=== PATIENT | male | born 1955 | race African-American/Black ===

== ENCOUNTER 2017-06-19 14:59 | Observation (INO) | payer BC, MEDICARE ==
[~2017-06-19] VITALS: Ht 188 cm; Wt 99.8 kg
[2017-06-19] MEDS ORDERED: ONDANSETRON HCL 4MG/2ML VIAL IV STA (16:44)
[2017-06-19] MEDS ORDERED: MORPHINE SULFATE 4 MG/ML CPJ (NOT FOR IM USE) IV STA (16:44)
[2017-06-19 17:32] LABS: BASOPHILS % 0.5 % (0.0-2.0); HEMATOCRIT. 44.7 % (42.0-52.0); HEMOGLOBIN. 15.4 g/dL (14.0-18.0); LYMPHOCYTES % 7.2 % (20.0-50.0); MEAN CORPUSCULAR HEMOGLOBIN 28.8 pg (28.0-32.0); MEAN CORPUSCULAR VOLUME 83.5 fL (80.0-94.0); MONOCYTES % 5.7 % (2.0-8.0); NEUTROPHILS % 86.6 % (40.0-76.0); PLATELET 228 x1000/uL (130-400); RED BLOOD CELL COUNT 5.36 mill/uL (4.7-6.1); RED CELL DISTRIBUTION WIDTH 14.3 % (11.6-14.6)
[2017-06-19 17:40] LABS: CLARITY URINE CLEAR (CLEAR); COLOR URINE YELLOW (YELLOW); GLUCOSE URINE 1+ (NEGATIVE); KETONES URINE NEGATIVE (NEGATIVE); LEUKOCYTE ESTERASE URINE NEGATIVE (NEGATIVE); NITRITE URINE NEGATIVE (NEGATIVE); OCCULT BLOOD URINE 3+ (NEGATIVE); PH URINE 7.5 (4.5-8.0); PROTEIN URINE NEGATIVE (NEGATIVE); SPECIFIC GRAVITY URINE 1.008 (1.005-1.030); UROBILINOGEN URINE 0.2 E.U./dL (0.2-1.0)
[2017-06-19 17:41] LABS: CHLORIDE 100 mEq/L (98-107)
[2017-06-19 17:43] LABS: CARBON DIOXIDE 27 mEq/L (21-32)
[2017-06-19 17:49] LABS: TROPONIN I 0.02 ng/mL (0.00-0.04)
[2017-06-19 17:52] LABS: INR 1.1; PARTIAL THROMBOPLASTIN TIME 29.4 sec (24.0-34.0); PROTHROMBIN TIME 11.4 sec
[2017-06-19] MEDS ORDERED: PIPERACILLIN/TAZ 3.375G PREMIX 50 ML IV ONE (18:30)
[2017-06-19] MEDS ORDERED: SODIUM CHLORIDE 0.9% 1000ML BAG (SEPSIS BOLUS) IV ONE (18:30)
[2017-06-19] MEDS ORDERED: LEVOFLOXACIN 500MG PREMIX 100 ML IV ONE (19:15)
[2017-06-19] MEDS ORDERED: ONDANSETRON HCL 4MG/2ML VIAL IV ONE (20:30)
[2017-06-19] MEDS ORDERED: MORPHINE SULFATE 4 MG/ML CPJ (NOT FOR IM USE) IV ONE (20:30)
[2017-06-19] MEDS ORDERED: HYDRALAZINE 20MG/ML VIAL IV ONE (21:15)
[2017-06-19 23:03] VITALS: BP 170/62
[2017-06-19 23:33] VITALS: BP 170/62
[2017-06-20] MEDS ORDERED: ONDANSETRON HCL 4MG/2ML VIAL IV PRN
[2017-06-20] MEDS ORDERED: ACETAMINOPHEN 325MG TABLET PO PRN
[2017-06-20] MEDS ORDERED: DOCUSATE SODIUM 100MG CAPSULE PO PRN
[2017-06-20] MEDS: TAMSULOSIN HCL 0.4MG SR CAPSULE PO SCH ×2 (01:26→08:53)
[2017-06-20] MEDS: SODIUM CHLORIDE 0.9% 1,000 ML IV SCH ×2 (01:27→12:43)
[2017-06-20] MEDS: MORPHINE SULFATE 2 MG/ML CPJ (NOT FOR IM USE) IV PRN ×3 (02:30→21:04)
[2017-06-20 04:00] VITALS: BP 158/63
[2017-06-20] MEDS ORDERED: DEXTROSE 50% WATER 50ML SYRINGE IV PRN (06:30)
[2017-06-20] MEDS: BLOOD SUGAR DIAGNOSTIC STRIP TEST SCH ×4 (07:02→21:04)
[2017-06-20 07:08] LABS: HEMATOCRIT. 42.5 % (42.0-52.0); HEMOGLOBIN. 14.1 g/dL (14.0-18.0); MEAN CORPUSCULAR HEMOGLOBIN 28.3 pg (28.0-32.0); MEAN CORPUSCULAR VOLUME 84.9 fL (80.0-94.0); MEAN PLATELET VOLUME 9.2 fl (7.4-10.4); PLATELET 224 x1000/uL (130-400); RED CELL DISTRIBUTION WIDTH 14.7 % (11.6-14.6)
[2017-06-20] MEDS: CEFTRIAXONE 1 G PREMIX 50 ML IV SCH ×2 (07:15→17:45)
[2017-06-20] MEDS: INSULIN LISPRO 100 UNITS/ML SUBCUT SCH ×4 (07:25→21:28)
[2017-06-20 08:00] VITALS: BP 162/94
[2017-06-20] MEDS: FAMOTIDINE 20MG TABLET PO SCH (08:53)
[2017-06-20] MEDS: ENOXAPARIN 40MG/0.4ML SYR SUBCUT SCH (08:57)
[2017-06-20] MEDS ORDERED: FAMOTIDINE 20MG TABLET PO SCH (09:00)
[2017-06-20] MEDS ORDERED: AMLO2.5T45 PO (11:28)
[2017-06-20] MEDS ORDERED: ATOR20TA65 PO (11:28)
[2017-06-20] MEDS ORDERED: ASPI-1159 PO (11:29)
[2017-06-20] MEDS ORDERED: BACL-141 PO (11:30)
[2017-06-20] MEDS ORDERED: CYAN100053 IJ (11:31)
[2017-06-20] MEDS ORDERED: CHOL500010 PO (11:31)
[2017-06-20] MEDS ORDERED: GABA-531 PO (11:32)
[2017-06-20] MEDS ORDERED: INSU100C6 SQ (11:33)
[2017-06-20] MEDS ORDERED: INSU100I22 SQ (11:34)
[2017-06-20] MEDS ORDERED: INSLAN SQ (11:35)
[2017-06-20] MEDS ORDERED: LISI-604 PO (11:36)
[2017-06-20] MEDS ORDERED: NAPR-681 PO (11:37)
[2017-06-20] MEDS ORDERED: OMEP20TA80 PO (11:37)
[2017-06-20] MEDS ORDERED: TADA5TAB PO (11:38)
[2017-06-20] MEDS ORDERED: SIMV10TA6 PO (11:38)
[2017-06-20 12:00] VITALS: BP 186/105
[2017-06-20] MEDS ORDERED: HYDROMORPHONE HCL/PF 2MG/ML CPJ IV PRN (12:30)
[2017-06-20] MEDS ORDERED: NITROGLYCERIN OINT 1GM/INCH UDPKT TD NR (13:30)
[2017-06-20] MEDS ORDERED: METOPROLOL TARTRATE 5MG/5ML VIAL IV NR (15:30)
[2017-06-20 16:00] VITALS: BP 134/85
[2017-06-20 16:58] LABS: TROPONIN I 0.03 ng/mL (0.00-0.04)
[2017-06-20] MEDS: DILTIAZEM HCL 60MG TABLET PO SCH (17:48)
[2017-06-20] MEDS: NITROGLYCERIN OINT 1GM/INCH UDPKT TD SCH (18:45)
[2017-06-20 19:55] LABS: NUCLEATED RED BLOOD CELLS 1 /100 WBC; PLATELET ESTIMATE NORMAL
[2017-06-20 20:00] VITALS: BP 143/85
[2017-06-20] MEDS: NIFEDIPINE XL 60MG TAB PO SCH (20:58)
[2017-06-20] MEDS ORDERED: TERAZOSIN HCL 5MG CAPSULE PO SCH (21:00)
[2017-06-20] MEDS: INSULIN DETEMIR UD 100 UNITS/ML SYR SUBCUT SCH (22:49)
[2017-06-21] VITALS: BP 148/80
[2017-06-21] MEDS: NITROGLYCERIN OINT 1GM/INCH UDPKT TD SCH ×3 (00:32→14:00)
[2017-06-21] MEDS: DILTIAZEM HCL 60MG TABLET PO SCH ×3 (00:35→11:53)
[2017-06-21 04:00] VITALS: BP 141/62
[2017-06-21] MEDS: SODIUM CHLORIDE 0.9% 1,000 ML IV SCH (04:57)
[2017-06-21] MEDS: BLOOD SUGAR DIAGNOSTIC STRIP TEST SCH ×2 (06:55→11:43)
[2017-06-21] MEDS: CEFTRIAXONE 1 G PREMIX 50 ML IV SCH (06:56)
[2017-06-21] MEDS: INSULIN LISPRO 100 UNITS/ML SUBCUT SCH ×2 (06:58→12:15)
[2017-06-21 07:09] LABS: BASOPHILS % 0.1 % (0.0-2.0); EOSINOPHILS % 0.2 % (0.0-5.0); HEMATOCRIT. 37.9 % (42.0-52.0); HEMOGLOBIN. 12.7 g/dL (14.0-18.0); MEAN CORPUSCULAR HEMOGLOBIN 28.4 pg (28.0-32.0); MEAN CORPUSCULAR VOLUME 84.8 fL (80.0-94.0); MEAN PLATELET VOLUME 9.5 fl (7.4-10.4); MONOCYTES % 7.8 % (2.0-8.0); NEUTROPHILS % 82.9 % (40.0-76.0); PLATELET 199 x1000/uL (130-400); RED BLOOD CELL COUNT 4.47 mill/uL (4.7-6.1); RED CELL DISTRIBUTION WIDTH 14.9 % (11.6-14.6)
[2017-06-21 07:19] LABS: PHOSPHORUS 3.1 mg/dL (2.5-4.9)
[2017-06-21 08:00] VITALS: BP 123/62
[2017-06-21] MEDS: ENOXAPARIN 40MG/0.4ML SYR SUBCUT SCH (08:40)
[2017-06-21] MEDS: NIFEDIPINE XL 60MG TAB PO SCH (08:40)
[2017-06-21] MEDS: FAMOTIDINE 20MG TABLET PO SCH (08:41)
[2017-06-21] MEDS ORDERED: TAMSULOSIN HCL 0.4MG SR CAPSULE PO SCH (09:00)
[2017-06-21] MEDS: INSULIN DETEMIR UD 100 UNITS/ML SYR SUBCUT SCH (10:04)
[2017-06-21 12:00] VITALS: BP 119/64
[2017-06-21] MEDS ORDERED: POTASSIUM CHLORIDE 20MEQ TABLET SR PO NR (12:45)
[2017-06-21] MEDS ORDERED: MAGNESIUM 1 G PREMIX 100 ML IV NR (14:00)
[2017-06-21 15:24] VITALS: BP 119/64
[2017-06-21 16:00] VITALS: BP 109/60
[2017-06-21] MEDS ORDERED: METOPROLOL TARTRATE 50MG TABLET PO SCH (21:00)
== END 2017-06-21 17:23 | disposition short-term general hospital (02) ==
LOC: ER 15:19 → EDBEDREQ 18:31 → EDBEDREQTM 18:31 → 5WST 19:17 → INTOOBSV 19:17 → EDBEDREQSVC 19:38 → EDBEDREQ 19:38 → ENRESERV 20:32
PROVIDERS: ADMIT Ophthalmology; ATTEND Ophthalmology
DX: N17.9 Acute kidney failure, unspecified (principal); N13.8 Other obstructive and reflux uropathy; N39.0 Urinary tract infection, site not specified; N13.30 Unspecified hydronephrosis; N40.1 Benign prostatic hyperplasia with lower urinary tract symptoms; D63.8 Anemia in other chronic diseases classified elsewhere; E78.5 Hyperlipidemia, unspecified; E11.22 Type 2 diabetes mellitus with diabetic chronic kidney disease; I12.9 Hypertensive chronic kidney disease with stage 1 through stage 4 chronic kidney disease, or unspecified chronic kidney disease; N18.9 Chronic kidney disease, unspecified; E27.8 Other specified disorders of adrenal gland; E78.00 Pure hypercholesterolemia, unspecified; F12.90 Cannabis use, unspecified, uncomplicated; G89.29 Other chronic pain; I48.0 Paroxysmal atrial fibrillation; K76.89 Other specified diseases of liver; R31.0 Gross hematuria; R33.8 Other retention of urine; Z79.4 Long term (current) use of insulin; Z79.899 Other long term (current) drug therapy; Z82.49 Family history of ischemic heart disease and other diseases of the circulatory system
CPT/HCPCS: 36415; 71010; 74176; 76700; 80048; 80053; 81001; 82105; 82550; 82962; 83605; 83690; 83735; 83880; 84100; 84153; 84443; 84484; 85025; 85610; 85730; 87040; 87086; 93005; 96361; 96365; 96367; 96372; 96375; 96376; 99291; G0378; J0360; J0696; J1170; J1650; J1815; J1956; J2270; J2405; J2543; J3475; J3490; J7030; A4315

== ENCOUNTER 2017-08-29 16:43 | Inpatient (IN) | payer BC, OTHER ==
[~2017-08-29] VITALS: Ht 188 cm; Wt 89.8 kg
[~2017-08-29 16:43] MED LIST: AMLO2.5T45 PO; ASPI-1159 PO; ATOR20TA65 PO; BACL-141 PO; CHOL500010 PO; CYAN100053 IJ; GABA-531 PO; INSLAN SQ; INSU100C6 SQ; INSU100I22 SQ; LISI-604 PO; NAPR-681 PO; OMEP20TA2 PO; SIMV10TA6 PO; TADA5TAB PO
[2017-08-29] MEDS ORDERED: SODIUM CHLORIDE 0.9% 500 ML IV ONE (19:30)
[2017-08-29 20:13] LABS: BASOPHILS % 0.5 % (0.0-2.0); EOSINOPHILS % 0.5 % (0.0-5.0); HEMATOCRIT. 39.6 % (42.0-52.0); LYMPHOCYTES % 15.7 % (20.0-50.0); MEAN CORPUSCULAR HEMOGLOBIN 27.4 pg (28.0-32.0); MEAN CORPUSCULAR VOLUME 83.4 fL (80.0-94.0); MEAN PLATELET VOLUME 9.5 fl (7.4-10.4); MONOCYTES % 5.6 % (2.0-8.0); NEUTROPHILS % 77.7 % (40.0-76.0); PLATELET 256 x1000/uL (130-400); RED BLOOD CELL COUNT 4.75 mill/uL (4.7-6.1); RED CELL DISTRIBUTION WIDTH 13.5 % (11.6-14.6)
[2017-08-29 20:19] LABS: INR 1.1; PROTHROMBIN TIME 11.3 sec (9.4-11.6)
[2017-08-29 20:21] LABS: CHLORIDE 104 mEq/L (98-107)
[2017-08-29 20:26] LABS: CARBON DIOXIDE 23 mEq/L (21-32)
[2017-08-29 20:30] LABS: TROPONIN I < 0.02 ng/mL (0.00-0.04)
[2017-08-29 20:48] LABS: HEPATITIS B SURFACE ANTIGEN NEGATIVE
[2017-08-29 21:16] LABS: HEPATITIS B CORE AB IGM NEGATIVE
[2017-08-29 21:17] LABS: HEPATITIS A AB IGM NEGATIVE (NEGATIVE)
[2017-08-29 22:51] LABS: CLARITY URINE CLOUDY (CLEAR); COLOR URINE YELLOW (YELLOW); GLUCOSE URINE NEGATIVE (NEGATIVE); KETONES URINE NEGATIVE (NEGATIVE); LEUKOCYTE ESTERASE URINE 3+ (NEGATIVE); NITRITE URINE NEGATIVE (NEGATIVE); OCCULT BLOOD URINE TRACE (NEGATIVE); PROTEIN URINE NEGATIVE (NEGATIVE); SPECIFIC GRAVITY URINE 1.014 (1.005-1.030); UROBILINOGEN URINE 0.2 E.U./dL (0.2-1.0)
[2017-08-29 23:03] LABS: *AMPHETAMINES SCREEN URINE NEGATIVE (NEGATIVE); *BARBITURATES SCREEN URINE NEGATIVE (NEGATIVE); *BENZODIAZEPINES SCREEN URINE NEGATIVE (NEGATIVE); *COCAINE SCREEN URINE NEGATIVE (NEGATIVE); CANNABINOID URINE SCREEN NEGATIVE (NEGATIVE); METHADONE URINE SCREEN NEGATIVE (NEGATIVE); OPIATES URINE SCREEN NEGATIVE (NEGATIVE); PHENCYCLIDINE URINE SCREEN NEGATIVE (NEGATIVE)
[2017-08-29] MEDS ORDERED: ONDANSETRON HCL 4MG/2ML VIAL IV ONE (23:45)
[2017-08-29] MEDS ORDERED: MORPHINE SULFATE 4 MG/ML CPJ (NOT FOR IM USE) IV ONE (23:45)
[2017-08-30] VITALS (7 sets, daily range): BP systolic 110–146; BP diastolic 63–71
[2017-08-30] MEDS ORDERED: ONDANSETRON HCL 4MG/2ML VIAL IV PRN (03:00)
[2017-08-30] MEDS ORDERED: MAGNESIUM/ALUMINUM HYDROXIDE/SIMETHICONE 30ML UDC PO PRN (03:00)
[2017-08-30] MEDS ORDERED: DEXTROSE 50% WATER 50ML SYRINGE IV PRN (03:00)
[2017-08-30] MEDS ORDERED: DIPHENHYDRAMINE 50MG/ML VIAL IV PRN (03:00)
[2017-08-30] MEDS ORDERED: CLONIDINE 0.1MG TABLET PO PRN (03:00)
[2017-08-30] MEDS ORDERED: GUAIFENESIN 200MG/10ML SUGAR FREE UDC PO PRN (03:00)
[2017-08-30] MEDS: BLOOD SUGAR DIAGNOSTIC STRIP TEST SCH ×4 (06:31→21:00)
[2017-08-30] MEDS: SODIUM CHLORIDE 0.9% INJ 3ML FLUSH IVF SCH ×3 (06:36→21:14)
[2017-08-30] MEDS: INSULIN LISPRO 100 UNITS/ML SUBCUT SCH ×4 (06:40→21:15)
[2017-08-30] MEDS: ACETAMINOPHEN 325MG TABLET PO PRN ×2 (09:53→16:58)
[2017-08-30] MEDS ORDERED: SULF-288 PO (14:27)
[2017-08-30] MEDS ORDERED: TERA5CAP4 PO (14:31)
[2017-08-30] MEDS ORDERED: DILT120C2 PO (14:31)
[2017-08-30] MEDS ORDERED: ASPI-867 PO (14:31)
[2017-08-30] MEDS ORDERED: DUTA0.5C2 PO (14:31)
[2017-08-31] VITALS (7 sets, daily range): BP systolic 119–137; BP diastolic 54–68
[2017-08-31] MEDS: ACETAMINOPHEN 325MG TABLET PO PRN ×2 (04:04→11:21)
[2017-08-31] MEDS: SODIUM CHLORIDE 0.9% INJ 3ML FLUSH IVF SCH ×3 (06:25→20:50)
[2017-08-31] MEDS: BLOOD SUGAR DIAGNOSTIC STRIP TEST SCH ×4 (06:25→20:50)
[2017-08-31] MEDS: INSULIN LISPRO 100 UNITS/ML SUBCUT SCH ×4 (06:26→20:52)
[2017-08-31 08:17] LABS: EOSINOPHILS % 2.9 % (0.0-5.0); HEMATOCRIT. 38.3 % (42.0-52.0); HEMOGLOBIN. 12.8 g/dL (14.0-18.0); LYMPHOCYTES % 23.2 % (20.0-50.0); MEAN CORPUSCULAR HEMOGLOBIN 27.8 pg (28.0-32.0); MEAN CORPUSCULAR VOLUME 83.2 fL (80.0-94.0); MEAN PLATELET VOLUME 7.8 fl (7.4-10.4); MONOCYTES % 8.1 % (2.0-8.0); NEUTROPHILS % 64.8 % (40.0-76.0); PLATELET 242 x1000/uL (130-400); RED CELL DISTRIBUTION WIDTH 13.2 % (11.6-14.6)
[2017-08-31 09:00] LABS: CARBON DIOXIDE 27 mEq/L (21-32); CHLORIDE 106 mEq/L (98-107); TROPONIN I < 0.02 ng/mL (0.00-0.04)
[2017-09-01 00:05] VITALS: BP 140/71
[2017-09-01 04:00] VITALS: BP 123/72
[2017-09-01] MEDS: SODIUM CHLORIDE 0.9% INJ 3ML FLUSH IVF SCH ×2 (05:28→14:45)
[2017-09-01] MEDS: BLOOD SUGAR DIAGNOSTIC STRIP TEST SCH ×3 (07:40→17:40)
[2017-09-01 08:00] VITALS: BP 125/72
[2017-09-01] MEDS: INSULIN LISPRO 100 UNITS/ML SUBCUT SCH ×3 (08:10→18:10)
[2017-09-01 12:00] VITALS: BP 127/87
[2017-09-01 16:00] VITALS: BP 128/73
[2017-09-01 18:21] VITALS: BP 127/82
== END 2017-09-01 19:21 | disposition home or self-care (01) | DRG 74 ==
LOC: ER 17:51 → 5WST 23:02 → EDBEDREQ 23:07 → EDBEDREQTM 23:07 → ENRESERV 23:15 → ER 08-30 00:42 → 7WST 08-31 13:42
PROVIDERS: ADMIT Internal Medicine; ATTEND Internal Medicine
DX: G90.8 Other disorders of autonomic nervous system (principal); I13.0 Hypertensive heart and chronic kidney disease with heart failure and stage 1 through stage 4 chronic kidney disease, or unspecified chronic kidney disease; R45.851 Suicidal ideations; R65.10 Systemic inflammatory response syndrome (SIRS) of non-infectious origin without acute organ dysfunction; E10.21 Type 1 diabetes mellitus with diabetic nephropathy; I50.9 Heart failure, unspecified; I42.2 Other hypertrophic cardiomyopathy; N39.0 Urinary tract infection, site not specified; W18.39XA Other fall on same level, initial encounter; I48.0 Paroxysmal atrial fibrillation; E10.22 Type 1 diabetes mellitus with diabetic chronic kidney disease; E78.00 Pure hypercholesterolemia, unspecified; E78.5 Hyperlipidemia, unspecified; F20.9 Schizophrenia, unspecified; N18.9 Chronic kidney disease, unspecified; F32.9 Major depressive disorder, single episode, unspecified; N40.1 Benign prostatic hyperplasia with lower urinary tract symptoms; Z79.4 Long term (current) use of insulin; Z82.49 Family history of ischemic heart disease and other diseases of the circulatory system; Z83.3 Family history of diabetes mellitus; Z88.0 Allergy status to penicillin; Z88.1 Allergy status to other antibiotic agents; Z91.040 Latex allergy status; Z79.82 Long term (current) use of aspirin; Z79.899 Other long term (current) drug therapy; Z72.89 Other problems related to lifestyle; Y93.89 Activity, other specified; Y92.89 Other specified places as the place of occurrence of the external cause; Y99.8 Other external cause status
CPT/HCPCS: 36415; 71010; 72070; 72100; 80048; 80053; 80305; 81001; 82962; 83036; 83735; 83880; 84484; 85025; 85610; 85651; 86705; 86709; 86803; 87040; 87077; 87086; 87186; 87340; 93005; 93306; 96361; 96374; 96375; 99285; J1815; J2270; J2405; J7030; J7040; A4315

== ENCOUNTER 2017-12-28 14:55 | Emergency (ER) | payer BC, OTHER ==
[~2017-12-28] VITALS: Ht 188 cm; Wt 82.0 kg
[~2017-12-28 14:55] MED LIST changes: -AMLO2.5T45 PO; +APIX5TAB PO; -ASPI-1159 PO; +ASPI-867 PO; -BACL-141 PO; +DILT-26 PO; +DOCU-138 PO; +DUTA0.5C2 PO; +FERR325T6 PO; -INSLAN SQ; -LISI-604 PO; -NAPR-681 PO; -SIMV10TA6 PO; +SOTA80TA PO; +SULF-288 PO; -TADA5TAB PO; +TERA5CAP4 PO; +TRAM50TA3 PO
[2017-12-28 18:15] VITALS: BP 158/60
== END 2017-12-28 18:16 | disposition home or self-care (01) ==
LOC: ER 15:25
DX: Z43.6 Encounter for attention to other artificial openings of urinary tract (principal); L08.9 Local infection of the skin and subcutaneous tissue, unspecified; I11.0 Hypertensive heart disease with heart failure; I50.9 Heart failure, unspecified; E11.9 Type 2 diabetes mellitus without complications; N40.0 Benign prostatic hyperplasia without lower urinary tract symptoms; E78.00 Pure hypercholesterolemia, unspecified; I48.91 Unspecified atrial fibrillation; F12.10 Cannabis abuse, uncomplicated; Z88.0 Allergy status to penicillin; Z88.1 Allergy status to other antibiotic agents; Z91.040 Latex allergy status; Z79.82 Long term (current) use of aspirin; Z79.4 Long term (current) use of insulin
CPT/HCPCS: 99284

== ENCOUNTER 2018-02-05 10:41 | Emergency (ER) | payer BC, OTHER ==
[~2018-02-05] VITALS: Ht 188 cm; Wt 84.0 kg
[2018-02-05 12:35] LABS: BASOPHILS % 0.5 % (0.0-2.0); HEMATOCRIT. 37.8 % (42.0-52.0); MEAN CORPUSCULAR HEMOGLOBIN 27.1 pg (28.0-32.0); MEAN CORPUSCULAR VOLUME 85.6 fL (80.0-94.0); MEAN PLATELET VOLUME 7.9 fl (7.4-10.4); MONOCYTES % 6.9 % (2.0-8.0); NEUTROPHILS % 72.6 % (40.0-76.0); PLATELET 277 x1000/uL (130-400); RED BLOOD CELL COUNT 4.41 mill/uL (4.7-6.1); RED CELL DISTRIBUTION WIDTH 15.5 % (11.6-14.6)
[2018-02-05 12:42] LABS: CHLORIDE 107 mEq/L (98-107)
[2018-02-05 16:20] LABS: CLARITY URINE TURBID (CLEAR); COLOR URINE YELLOW (YELLOW); KETONES URINE NEGATIVE (NEGATIVE); LEUKOCYTE ESTERASE URINE 2+ (NEGATIVE); NITRITE URINE NEGATIVE (NEGATIVE); OCCULT BLOOD URINE 2+ (NEGATIVE); PH URINE 8.5 (4.5-8.0); PROTEIN URINE 3+ (NEGATIVE); SPECIFIC GRAVITY URINE 1.029 (1.005-1.030)
[2018-02-05 17:14] VITALS: BP 169/72
== END 2018-02-05 18:00 | disposition home or self-care (01) ==
LOC: ER 10:41
DX: Z46.6 Encounter for fitting and adjustment of urinary device (principal); N39.0 Urinary tract infection, site not specified; I48.91 Unspecified atrial fibrillation; F12.10 Cannabis abuse, uncomplicated; I11.0 Hypertensive heart disease with heart failure; I50.9 Heart failure, unspecified; E11.9 Type 2 diabetes mellitus without complications; E78.00 Pure hypercholesterolemia, unspecified; N40.0 Benign prostatic hyperplasia without lower urinary tract symptoms; Z79.4 Long term (current) use of insulin; Z79.82 Long term (current) use of aspirin; Z88.0 Allergy status to penicillin; Z88.8 Allergy status to other drugs, medicaments and biological substances; Z91.040 Latex allergy status
CPT/HCPCS: 36415; 51702; 80053; 81003; 85025; 99284; A4315